=== PATIENT | male | born 1930 | race Caucasian/White ===

== ENCOUNTER 2019-01-22 14:47 | Inpatient (IN) | payer MEDICARE, OTHER ==
--- NOTE | 2019-01-22 14:57 | EDM.PDOC ---
ED HPI GENERAL MEDICAL PROBLEM - General Chief Complaint: General Stated Complaint: FALL Time Seen by Provider: 01/22/19 14:52 Source of Information: Reports: Patient, EMS, Family (son) History Limitations: Reports: Altered Mental Status (history of dementia) - History of Present Illness INITIAL COMMENTS - FREE TEXT/NARRATIVE: Lonnie is an 88 yo male who is brought into the ED via [facility]. His son is present as well and Lonnie states he got up around 1:00 oclock this morning to use the restroom and ended up tripping. He denies any loss of consciousness. States he was unable to get up on his own, so he had crawled from the batho area to his living room. Admits he was able to pull some blankets down and get himself comfortable until his son came over. His son states around 1400 hrs this afternoon he had went to check on him and he was still lying on the ground. He states he was unable to get Lonnie up. He admits he hasn't been very active lately and solely relies on his walker. Hasn't been able to shower so has been giving him sponge baths. Lonnie admits to some neck discomfort but denies hitting his head. States his right ankle is bothering him as well. Denies any other discomfort secondary to fall. Lonnie overall is in good spirits and making normal conversation. Son states his Alzheimer's has been pretty stable, has some difficulty at times with short term memory. Onset: Today Onset Date: 01/22/19 Onset Time: 01:00 Location: Reports: Neck, Lower Extremity, Right Improves with: Reports: Immobilization Worsens with: Reports: Movement Treatments QUALITY CONTROL ASSESSOR: Reports: Spinal Immobilization - Related Data Allergies Allergy/AdvReac Type Severity Reaction Status Date / Time Penicillins Allergy Nausea Verified 01/22/19 14:48 Past Medical History HEENT History: Reports: Cataract Cardiovascular History: Reports: CAD, Hypertension Respiratory History: Reports: Asthma, COPD Neurological History: Reports: Alzheimers Disease Psychiatric History: Reports: Alzheimers Disease, Anxiety, Bipolar, Depression Endocrine/Metabolic History: Reports: Hypothyroidism Oncologic (Cancer) History: Reports: Prostate - Past Surgical History Cardiovascular Surgical History: Reports: Carotid Endarterectomy, Coronary Artery Bypass GI Surgical History: Reports: Hernia, Inguinal Male Surgical History: Reports: Prostatectomy, Vasectomy Neurological Surgical History: Reports: C-Spine, Lumbar Spine Musculoskeletal Surgical History: Reports: Knee Replacement Social & Family History - Family History Cardiac: Reports: Other (See Below) (heart disease) Musculoskeletal: Reports: Arthritis, Osteoporosis - Tobacco Use Smoking Status *Q: Former Smoker - Alcohol Use Alcohol Use History: No - Recreational Drug Use Recreational Drug Use: No - Living Situation & Occupation Living situation: Reports: Alone Occupation: Retired ED ROS GENERAL - Review of Systems Review Of Systems: See Below Constitutional: Reports: Weakness. Denies: Fever, Chills HEENT: Reports: No Symptoms. Denies: Vision Change Respiratory: Denies: Shortness of Breath, Wheezing, Cough Cardiovascular: Reports: Edema. Denies: Chest Pain, Lightheadedness, Palpitations, Syncope GI/Abdominal: Reports: No Symptoms : Reports: No Symptoms Musculoskeletal: Reports: Neck Pain, Leg Pain, Foot Pain (right ankle pain) Skin: Reports: Rash Neurological: Reports: Difficulty Walking, Weakness. Denies: Confusion, Headache, Seizure, Syncope, Trouble Speaking Psychiatric: Reports: No Symptoms ED EXAM, GENERAL - Physical Exam Exam: See Below Exam Limited By: No Limitations General Appearance: Alert, No Apparent Distress, Other (poor grooming) Eye Exam: Right Eye: Conjunctival Injection, Bilateral Eye: EOMI, PERRL Ears: Normal External Exam, Normal Canal, Hearing Grossly Normal, Normal TMs Nose: Normal Inspection, No Blood Throat/Mouth: Normal Inspection, Normal Lips, Normal Oropharynx, Normal Voice, No Airway Compromise, Other (dry mucous membranes) Head: Atraumatic, Normocephalic Neck: Full Range of Motion, Tender Lateral. No: Tender Midline Respiratory/Chest: No Respiratory Distress, Lungs Clear, Normal Breath Sounds, No Accessory Muscle Use Cardiovascular: Regular Rate, Rhythm, No Murmur GI/Abdominal: Normal Bowel Sounds, Soft, Other (obese). No: Distended, Rigid, Rebound, Mass Back Exam: No: Vertebral Tenderness Extremities: Pedal Edema (2 + bilateral pretibial edema) Neurological: Alert, Oriented, Normal Cognition, No Motor/Sensory Deficits, Memory Loss Recent Events. No: Confused, Disoriented, Slow to Respond, Memory Loss Remote Events Psychiatric: Normal Affect, Normal Mood Skin Exam: Warm, Rash (erythematous rash to under bilateral breast, axilla and groin) Course - Vital Signs Last Recorded V/S: Last Vital Signs Temp 97.2 F 01/22/19 15:19 Pulse 104 H 01/22/19 15:19 Resp 18 01/22/19 15:19 BP 175/84 H 01/22/19 15:19 Pulse Ox 96 01/22/19 15:19 - Orders/Labs/Meds Orders: Active Orders 24 hr Category Date Time Status Ankle Min 3V Rt [CR] Stat Exams 01/22/19 14:50 Taken Cervical Spine wo Cont [CT] Stat Exams 01/22/19 14:50 Taken Tibia Fibula Rt [CR] Stat Exams 01/22/19 14:50 Taken UA RFX RADHA AND CULT IF INDIC [URIN] Routine Lab 01/22/19 15:21 Ordered Labs: Laboratory Tests 01/22/19 01/22/19 Range/Units 15:45 15:45 WBC 18.5 H (5.0-10.0) 10^3/uL RBC 4.98 (4.50-6.00) 10^6/uL Hgb 15.6 (14.0-18.0) g/dL Hct 45.7 (40.0-54.0) % MCV 91.8 (82.0-94.0) fL MCH 31.3 (27.0-32.0) pg MCHC 34.1 (33.0-38.0) g/dL RDW Coeff of Mina 13.5 (11.0-15.0) % Plt Count 241 (150-400) 10^3/uL Neut % (Auto) 77.6 (35-85) % Lymph % (Auto) 11.0 (10-55) % [place] % (Auto) 11.0 (0-16) % Eos % (Auto) 0.2 (0-5) % Baso % (Auto) 0.2 (0-3) % Neut # (Auto) 14.37 H (1.80-7.00) 10^3/uL Lymph # (Auto) 2.03 (1.00-4.80) 10^3/uL [place] # (Auto) 2.04 H (0.00-0.80) 10^3/uL Eos # (Auto) 0.04 (0.00-0.45) 10^3/uL Baso # (Auto) 0.03 10^3/uL ESR 3 (0-15) mm/hr Sodium 144 (136-145) mEq/L Potassium 4.0 (3.5-5.0) mEq/L Chloride 108 H (98-106) mEq/L Carbon Dioxide 28 (21-32) mmol/L BUN 30 H (7-18) mg/dL Creatinine 1.2 (0.7-1.3) mg/dL Est Cr Clr Drug Dosing TNP Estimated GFR (MDRD) 57 L (>=60) mL/min Glucose 122 H (75-99) mg/dL Calcium 10.8 H (8.4-10.1) mg/dL Total Bilirubin 0.5 (0.0-1.0) mg/dL AST 21 (15-37) U/L ALT 21 (12-78) U/L Alkaline Phosphatase 112 (46-116) U/L Creatine Kinase 360 H (35-232) U/L Total Protein 6.7 (6.4-8.2) g/dL Albumin 3.5 (3.4-5.0) g/dL Departure - Departure Time of Disposition: 16:00 Disposition: Admitted As Inpatient 68 Clinical Impression: History of falling, presenting hazards to health, Activities of daily living deficit involving grooming and hygiene - Discharge Information Forms: ED Department Discharge - Problem List & Annotations (1) History of falling, presenting hazards to health SNOMED Code(s): 640648622, 306519937, 453838441 Code(s): Z91.81 - HISTORY OF FALLING Status: Acute (2) Activities of daily living deficit involving grooming and hygiene SNOMED Code(s): 691719505 Code(s): UTF3809 - Status: Acute - My Orders Last 24 Hours: My Active Orders 01/22/19 14:50 Ankle Min 3V Rt [CR] Stat Cervical Spine wo Cont [CT] Stat Tibia Fibula Rt [CR] Stat 01/22/19 15:21 UA RFX RADHA AND CULT IF INDIC [URIN] Routine - Assessment/Plan Admission H&P: Please use this note as an admission H&P Last 24 Hours: My Active Orders 01/22/19 14:50 Ankle Min 3V Rt [CR] Stat Cervical Spine wo Cont [CT] Stat Tibia Fibula Rt [CR] Stat 01/22/19 15:21 UA RFX RADHA AND CULT IF INDIC [URIN] Routine Plan: Discussed findings with Lonnie and his son. I am concerned of him being a vulnerable adult. Will admit to Dr. Earl's services under acute care. Will have social services counselor consult. Dr. earl alerted on Lonnie's condition and was in agreement. X-rays of the right tib/fib and ankle were negative for any acute fractures, pending final radiology report. CT of cervical spine did not show any acute fractures, again pending final report. C-collar was removed after clearance to include long board.
[2019-01-22 16:03] LABS: CHLORIDE,CL 108 mEq/L (98-106); SODIUM,NA 144 mEq/L (136-145)
[2019-01-22] MEDS: Enoxaparin 40 MG/0.4 ML Syringe SUBCUT SCH (22:29)
[2019-01-22] MEDS: Formoterol/Mometasone 200-5 MCG 8.8 GM Inhaler IH SCH (22:29)
[2019-01-22] MEDS: Nystatin Topical Powder 15 GM Bottle TOP SCH (22:30)
[2019-01-23] MEDS: Levothyroxine 50 MCG Tab PO SCH (06:06)
[2019-01-23 07:57] LABS: CHLORIDE,CL 111 mEq/L (98-106); SODIUM,NA 146 mEq/L (136-145)
[2019-01-23] MEDS ORDERED: BRIMONIDINE EYEBOTH SCH (08:00)
[2019-01-23] MEDS: Venlafaxine 75 MG Cap.ER PO SCH (08:30)
[2019-01-23] MEDS: Verapamil 240 MG Tab.ER PO SCH (08:30)
[2019-01-23] MEDS: Donepezil 5 MG Tab PO SCH (08:31)
[2019-01-23] MEDS: Furosemide 40 MG Tab PO SCH (08:31)
[2019-01-23] MEDS: Formoterol/Mometasone 200-5 MCG 8.8 GM Inhaler IH SCH ×2 (08:32→20:34)
[2019-01-23] MEDS: Nystatin Topical Powder 15 GM Bottle TOP SCH ×4 (08:33→20:34)
[2019-01-23] MEDS: Aspirin 325 MG Tab.EC PO SCH (08:38)
[2019-01-23] MEDS: Brimonidine 0.2% Ophth Soln 5 ML Bottle EYEBOTH SCH (08:45)
[2019-01-23] MEDS: Sodium Chloride 0.9% 1,000 ML IV SCH ×2 (08:55→22:39)
--- NOTE | 2019-01-23 12:43 | PN ---
DATE: 01/23/2019 S: Lonnie is an 88-year-old male who was admitted to the hospital yesterday after coming in by EMS with concerns of a recent fall with unable to ambulate. It appears that he had been lying by his couch for about 12 hours before his son did find him. He did not lose any consciousness, did come in with complaints of some right lower extremity pain and some neck pain. He states today that the pain in the neck has subsided. He states he does not have any discomfort in his right lower extremity unless he does move it. After admission, we did get a radiology report back that did show a proximal fibular fracture that was nondisplaced. Staff stated he had an excellent night, did not have any complaints throughout the night. O: VITAL SIGNS: Blood pressure is 151/86 with a heart rate of 104, temperature 99.1, oxygen sat 96% with respiratory rate of 20. GENERAL: Cooperative male. He does not really appear to be in any acute distress. He was sitting up in the hospital bed having breakfast this morning. Answering all questions appropriately. HEENT: Grossly unremarkable. LUNGS: Clear to auscultation. I do not hear any adventitious sounds. Respirations are equal and nonlabored. No wheezes, rhonchi, or rales. CARDIAC: Regular rate and rhythm. No murmurs are noted. ABDOMEN: Morbidly obese. Soft, nontender, nondistended. Bowel sounds are present. Normoactive. No organomegaly. No guarding or rigidity. EXTREMITIES: Continued to have 2+ pedal edema in bilateral lower extremities. Tenderness with palpation over the distal knee. LABORATORY DATA: White blood count did improve from 18,500 down to 13,300 today. Otherwise, labs have been stable. CRP was 9. BNP this morning was 435. Urinalysis was negative for any infection. ASSESSMENT: 1. HISTORY OF FALLING WITH PRESENTING HAZARDS TO HEALTH. 2. CLOSED RIGHT FIBULA FRACTURE. 3. VULNERABLE ADULT. P: We will keep Lonnie in acute care at this point in time. I did discuss with physical therapy to get him in a knee immobilizer, however, we do not have a knee immobilizer that will fit him. We will look into ordering from [facility]. We will keep him nonweightbearing at this point in time. Social service has been consulted for possible halfway placement. Dr. Earl reviewed the patient's chart who was in agreement. ADAN/JI /[id number]
[2019-01-23] MEDS: Enoxaparin 40 MG/0.4 ML Syringe SUBCUT SCH (20:34)
[2019-01-24] MEDS: Levothyroxine 50 MCG Tab PO SCH (06:26)
[2019-01-24] MEDS: Verapamil 240 MG Tab.ER PO SCH (07:53)
[2019-01-24] MEDS: Aspirin 325 MG Tab.EC PO SCH (07:53)
[2019-01-24] MEDS: Venlafaxine 75 MG Cap.ER PO SCH (07:53)
[2019-01-24] MEDS: Furosemide 40 MG Tab PO SCH (07:54)
[2019-01-24] MEDS: Donepezil 5 MG Tab PO SCH (07:54)
[2019-01-24] MEDS: Brimonidine 0.2% Ophth Soln 5 ML Bottle EYEBOTH SCH (07:57)
[2019-01-24] MEDS: Nystatin Topical Powder 15 GM Bottle TOP SCH ×2 (07:59→12:10)
[2019-01-24] MEDS: Formoterol/Mometasone 200-5 MCG 8.8 GM Inhaler IH SCH ×2 (07:59→20:14)
--- NOTE | 2019-01-24 11:53 | PCM.PN ---
- General Info Date of Service: 01/24/19 Admission Dx/Problem (Free Text): History of falls Right proximal fibular fracture Weakness Vulnerable adult Functional Status: Reports: Pain Controlled, Tolerating Diet. Denies: Ambulating - Review of Systems General: Reports: Weakness HEENT: Reports: No Symptoms Pulmonary: Denies: Shortness of Breath, Cough Cardiovascular: Denies: Chest Pain Gastrointestinal: Denies: Abdominal Pain, Nausea, Vomiting Musculoskeletal: Reports: Leg Pain Skin: Reports: Rash Neurological: Reports: Confusion - Patient Data Vitals - Most Recent: Last Vital Signs Temp 97.8 F 01/24/19 08:00 Pulse 94 01/24/19 08:00 Resp 20 01/24/19 08:00 BP 158/84 H 01/24/19 08:00 Pulse Ox 96 01/24/19 08:00 Weight - Most Recent: 260 lb I&O - Last 24 Hours: Intake & Output 01/23/19 01/24/19 01/24/19 22:59 06:59 14:59 Intake Total 961 Balance 961 Med Orders - Current: Current Medications Acetaminophen (Tylenol) 650 mg PO Q4H PRN PRN Reason: Pain (Mild 1-3)/fever Aspirin (Ecotrin) 325 mg PO DAILY [facility] Last Admin: 01/24/19 07:53 Dose: 325 mg Brimonidine Tartrate (Alphagan 0.2% Ophth Soln) 1 ml EYEBOTH DAILY [facility] Last Admin: 01/24/19 07:57 Dose: 1 drop Docusate Sodium (Colace) 100 mg PO BID PRN PRN Reason: Constipation Donepezil HCl (Aricept) 10 mg PO DAILY [facility] Last Admin: 01/24/19 07:54 Dose: 10 mg Enoxaparin Sodium (Lovenox) 40 mg SUBCUT BEDTIME [facility] Last Admin: 01/23/19 20:34 Dose: 40 mg Furosemide (Lasix) 40 mg PO DAILY [facility] Last Admin: 01/24/19 07:54 Dose: 40 mg Sodium Chloride (Normal Saline) 1,000 mls @ 70 mls/hr IV ASDIRECTED [facility] Last Admin: 01/23/19 22:39 Dose: 70 mls/hr Levothyroxine Sodium (Synthroid) 75 mcg PO ACBRK [facility] Last Admin: 01/24/19 06:26 Dose: 75 mcg Mometasone Furoate/Formoterol Fumar (Dulera 200-5 Mcg) 1 puff IH BIDRT [facility] Last Admin: 01/24/19 07:59 Dose: 1 inhalation Nystatin (Nystop) 0 gm TOP QID [facility] Last Admin: 01/24/19 07:59 Dose: 1 applic Venlafaxine HCl (Effexor Xr) 150 mg PO DAILY [facility] Last Admin: 01/24/19 07:53 Dose: 150 mg Verapamil HCl (Calan Sr) 120 mg PO DAILY [facility] Last Admin: 01/24/19 07:53 Dose: 120 mg Discontinued Medications Non-Formulary Medication (Brimonidine [Alphagan P 0.15% Ophth Soln]) 1 drop EYEBOTH DAILY [facility] Last Admin: 01/23/19 08:55 Dose: Not Given - Exam General: Alert, Oriented (oriented to person and place) HEENT: Mucous Membr. Moist/[place] Neck: Supple Lungs: Clear to Auscultation, Normal Respiratory Effort Cardiovascular: Regular Rate, Regular Rhythm GI/Abdominal Exam: Normal Bowel Sounds, Soft, Non-Tender Extremities: Pedal Edema, Limited Range of Motion, Other (immobilizer on right leg) Skin: Warm, Other (dry erythematous patches to under both breasts and in axilla , consistent with yeast infection) Neurological: No New Focal Deficit - Problem List & Annotations (1) Weakness SNOMED Code(s): 35410498 Code(s): R53.1 - WEAKNESS Status: Acute Priority: High Current Visit: Yes (2) Closed fibular fracture SNOMED Code(s): 713853751 Code(s): S82.409A - UNSP FRACTURE OF SHAFT OF UNSP FIBULA, INIT FOR CLOS FX Status: Acute Priority: High Current Visit: Yes Qualifiers: Encounter type: initial encounter Fracture alignment: nondisplaced Laterality: right (3) History of falling, presenting hazards to health SNOMED Code(s): 299026248, 644710512, 615562224 Code(s): Z91.81 - HISTORY OF FALLING Status: Acute Priority: High Current Visit: Yes - Problem List Review Problem List Initiated/Reviewed/Updated: Yes - Assessment Assessment:: Weakness History of falling Nondisplaced proximal fibular fracture Vulnerable adult - Plan Plan:: Patient remains weak, immobilizer on right leg. Has difficulty with range of motion and transfer due to weakness. History of dementia, responding appropriately today. Mild pain in leg at times. Physical therapy working with patient, concerns with ability to transfer with no weight bearing. May need to use james lift. Continues to have edema in lower extremities. Much discussion held with son and daughter, Dr. zeng and myself about rehab/ likelihood of this requiring some time due to patient's age, size and medical history. Family is agreeable to retirement for this. Will have case management social worker arrange placement with [place] for this. IV fluids stopped. Will add Diflucan for yeast infection, switch to nystatin cream. Possible discharge to [facility] in next 24-48 hours.
[2019-01-24] MEDS: Fluconazole 100 MG Tab PO SCH (12:10)
[2019-01-24] MEDS: Sodium Chloride 0.9% 1,000 ML IV SCH (12:40)
[2019-01-24] MEDS: Docusate Sodium 100 MG Cap PO PRN (20:14)
[2019-01-24] MEDS: Enoxaparin 40 MG/0.4 ML Syringe SUBCUT SCH (20:14)
[2019-01-24] MEDS: Nystatin Crm 30 GM Tube TOP SCH (20:16)
[2019-01-25] MEDS: Acetaminophen 325 MG Tab PO PRN ×2 (00:29→08:29)
[2019-01-25] MEDS: Levothyroxine 50 MCG Tab PO SCH (06:18)
[2019-01-25] MEDS: Verapamil 240 MG Tab.ER PO SCH (07:42)
[2019-01-25] MEDS: Donepezil 5 MG Tab PO SCH (07:43)
[2019-01-25] MEDS: Venlafaxine 75 MG Cap.ER PO SCH (07:43)
[2019-01-25] MEDS: Fluconazole 100 MG Tab PO SCH (07:44)
[2019-01-25] MEDS: Aspirin 325 MG Tab.EC PO SCH (07:44)
[2019-01-25] MEDS: Furosemide 40 MG Tab PO SCH (07:44)
[2019-01-25] MEDS: Formoterol/Mometasone 200-5 MCG 8.8 GM Inhaler IH SCH ×2 (07:46→20:40)
[2019-01-25] MEDS: Brimonidine 0.2% Ophth Soln 5 ML Bottle EYEBOTH SCH (07:46)
[2019-01-25] MEDS: Nystatin Crm 30 GM Tube TOP SCH ×2 (07:50→20:39)
[2019-01-25] MEDS: Docusate Sodium 100 MG Cap PO PRN (08:29)
--- NOTE | 2019-01-25 09:15 | PCM.PN ---
- General Info Date of Service: 01/25/19 Admission Dx/Problem (Free Text): History of falls Right proximal fibular fracture Weakness Vulnerable adult Functional Status: Reports: Pain Controlled, Tolerating Diet. Denies: Ambulating - Review of Systems General: Reports: Weakness. Denies: Fever HEENT: Reports: No Symptoms Pulmonary: Denies: Shortness of Breath, Cough Cardiovascular: Reports: Edema. Denies: Chest Pain, Lightheadedness Gastrointestinal: Denies: Abdominal Pain, Nausea, Vomiting Genitourinary: Reports: No Symptoms Musculoskeletal: Reports: Leg Pain Skin: Reports: Rash Neurological: Reports: Weakness - Patient Data Vitals - Most Recent: Last Vital Signs Temp 99.1 F 01/25/19 07:48 Pulse 85 01/25/19 07:48 Resp 20 01/25/19 07:48 BP 150/72 H 01/25/19 07:48 Pulse Ox 95 01/25/19 07:48 Weight - Most Recent: 260 lb Med Orders - Current: Current Medications Acetaminophen (Tylenol) 650 mg PO Q4H PRN PRN Reason: Pain (Mild 1-3)/fever Last Admin: 01/25/19 08:29 Dose: 650 mg Aspirin (Ecotrin) 325 mg PO DAILY [facility] Last Admin: 01/25/19 07:44 Dose: 325 mg Brimonidine Tartrate (Alphagan 0.2% Ophth Soln) 1 ml EYEBOTH DAILY [facility] Last Admin: 01/25/19 07:46 Dose: 1 drop Docusate Sodium (Colace) 100 mg PO BID PRN PRN Reason: Constipation Last Admin: 01/25/19 08:29 Dose: 100 mg Donepezil HCl (Aricept) 10 mg PO DAILY [facility] Last Admin: 01/25/19 07:43 Dose: 10 mg Enoxaparin Sodium (Lovenox) 40 mg SUBCUT BEDTIME [facility] Last Admin: 01/24/19 20:14 Dose: 40 mg Fluconazole (Diflucan) 100 mg PO DAILY [facility] Last Admin: 01/25/19 07:44 Dose: 100 mg Furosemide (Lasix) 40 mg PO DAILY [facility] Last Admin: 01/25/19 07:44 Dose: 40 mg Levothyroxine Sodium (Synthroid) 75 mcg PO ACBRK [facility] Last Admin: 01/25/19 06:18 Dose: 75 mcg Mometasone Furoate/Formoterol Fumar (Dulera 200-5 Mcg) 1 puff IH BIDRT [facility] Last Admin: 01/25/19 07:46 Dose: 1 inhalation Nystatin (Nystatin Crm) 0 gm TOP BID [facility] Last Admin: 01/25/19 07:50 Dose: 1 applic Venlafaxine HCl (Effexor Xr) 150 mg PO DAILY [facility] Last Admin: 01/25/19 07:43 Dose: 150 mg Verapamil HCl (Calan Sr) 120 mg PO DAILY [facility] Last Admin: 01/25/19 07:42 Dose: 120 mg Discontinued Medications Sodium Chloride (Normal Saline) 1,000 mls @ 70 mls/hr IV ASDIRECTED [facility] Last Admin: 01/24/19 12:40 Dose: 70 mls/hr Non-Formulary Medication (Brimonidine [Alphagan P 0.15% Ophth Soln]) 1 drop EYEBOTH DAILY [facility] Last Admin: 01/23/19 08:55 Dose: Not Given Nystatin (Nystop) 0 gm TOP QID [facility] Last Admin: 01/24/19 12:10 Dose: Not Given - Exam General: Alert, Oriented (oriented to person and place), Cooperative HEENT: Mucous Membr. Moist/[place] Neck: Supple Lungs: Clear to Auscultation, Normal Respiratory Effort Cardiovascular: Regular Rate, Regular Rhythm GI/Abdominal Exam: Normal Bowel Sounds, Soft, Non-Tender Extremities: Pedal Edema, Limited Range of Motion, Other (immobilizer intact to right leg) Skin: Warm, Dry Wound/Incisions: Other (erythematous plaques in axilla and under breasts.) Neurological: No New Focal Deficit - Problem List & Annotations (1) Weakness SNOMED Code(s): 88569781 Code(s): R53.1 - WEAKNESS Status: Acute Priority: High Current Visit: Yes (2) Closed fibular fracture SNOMED Code(s): 546113958 Code(s): S82.409A - UNSP FRACTURE OF SHAFT OF UNSP FIBULA, INIT FOR CLOS FX Status: Acute Priority: High Current Visit: Yes Qualifiers: Encounter type: initial encounter Fracture alignment: nondisplaced Laterality: right (3) History of falling, presenting hazards to health SNOMED Code(s): 598169965, 663955415, 124153046 Code(s): Z91.81 - HISTORY OF FALLING Status: Acute Priority: High Current Visit: Yes - Problem List Review Problem List Initiated/Reviewed/Updated: Yes - My Orders Last 24 Hours: My Active Orders 01/24/19 12:15 Fluconazole [Diflucan] 100 mg PO DAILY 01/24/19 20:00 Nystatin [Nystatin Crm] See Dose Instructions TOP BID - Assessment Assessment:: Weakness History of falling Nondisplaced proximal fibular fracture Vulnerable adult - Plan Plan:: Patient remains weak, immobilizer on right leg. Has difficulty with range of motion and transfer due to weakness. History of dementia, responding appropriately today. Mild pain in leg at times. Physical therapy working with patient, concerns with ability to transfer with no weight bearing. May need to use james lift. Continues to have edema in lower extremities. Much discussion held with son and daughter, Dr. zeng and myself about rehab/ likelihood of this requiring some time due to patient's age, size and medical history. Family is agreeable to shelter for this. Will have social media manager arrange placement with [place] for this. IV fluids stopped. Will add Diflucan for yeast infection, switch to nystatin cream. Possible discharge to [facility] in next 24-48 hours. 01-25-2019 Patient resting quietly in bed. More alert and conversive this am. Oriented to person and place. Immobilizer intact to right leg. Requires james at this point yet for transfers. Denies pain at present in leg. Edema noted bilaterally, 1-2+. Discussed transfer to [facility] tomorrow with son. Agreeable for this. Will continue with current medication regimen, PT.
[2019-01-25] MEDS ORDERED: Tuberculin, PPD 5 Units/0.1 ML 1 ML MDV IDERM ONE (14:32)
[2019-01-25] MEDS: Enoxaparin 40 MG/0.4 ML Syringe SUBCUT SCH (20:38)
[2019-01-26] MEDS: Levothyroxine 50 MCG Tab PO SCH (06:16)
[2019-01-26] MEDS: Aspirin 325 MG Tab.EC PO SCH (08:32)
[2019-01-26] MEDS: Donepezil 5 MG Tab PO SCH (08:32)
[2019-01-26] MEDS: Furosemide 40 MG Tab PO SCH (08:32)
[2019-01-26] MEDS: Verapamil 240 MG Tab.ER PO SCH (08:33)
[2019-01-26] MEDS: Fluconazole 100 MG Tab PO SCH (08:33)
[2019-01-26] MEDS: Formoterol/Mometasone 200-5 MCG 8.8 GM Inhaler IH SCH (08:33)
[2019-01-26] MEDS: Brimonidine 0.2% Ophth Soln 5 ML Bottle EYEBOTH SCH (08:33)
[2019-01-26] MEDS: Nystatin Crm 30 GM Tube TOP SCH (08:36)
[2019-01-26] MEDS: Venlafaxine 75 MG Cap.ER PO SCH (08:36)
[2019-01-26 09:17] VITALS: BP 178/87
--- NOTE | 2019-01-26 20:40 | PCM.DCSUM1 ---
Discharge Summary - Hospital Course Free Text/Narrative:: Patient presented to ER per EMS after a fall. Patient tripped enroute while using the bathroom, was unable to get up on his own so he crawled from the bathroom to the living room. Pulled blankets to keep comfortable and waited for his sone. Had laid on the floor for several hours. Son related he has not been as actively lately and has been relying on his walker more. Complaining of right ankle pain and when EMS arrived, also complained of neck pain. Son reports he patient has alzheimer's dementia, feels it has been stable. Has good days and bad. Patient unkempt on arrival. Noted to have yeast infection in axilla and under breast tissue. Xrays done on leg and cervical spine. Found to have tibia fracture. Admitted due to vulnerable adult. Diagnosis: Stroke: No Modified Goodland Scale: No Symptoms at All Modified Goodland Scale Score: 0 - Discharge Data Discharge Date: 01/26/19 Discharge Disposition: DC/Tfer W/I Hosp To Swing 61 Condition: Fair - Discharge Diagnosis/Problem(s) (1) Weakness SNOMED Code(s): 98509683 ICD Code: R53.1 - WEAKNESS Status: Acute Priority: High (2) Closed fibular fracture SNOMED Code(s): 706574023 ICD Code: S82.409A - UNSP FRACTURE OF SHAFT OF UNSP FIBULA, INIT FOR CLOS FX Status: Acute Priority: High Qualifiers: Encounter type: initial encounter Fracture alignment: nondisplaced Laterality: right (3) History of falling, presenting hazards to health SNOMED Code(s): 835053861, 566587751, 076949001 ICD Code: Z91.81 - HISTORY OF FALLING Status: Acute Priority: High - Patient Summary/Data Consults: Consultations 01/22/19 17:41 Consult to Case Management/Supervisor Boarding [CONS] Routine PT Evaluation and Treatment [CONS] Routine Hospital Course: Patient stable. Oriented to person and place. Cooperative. He currently has an immobilizer on due to tibia fracture. Denies much for pain. Transferring with ez stand and staff assist. Eating well. Currently on Diflucan and Nystatin cream for yeast infection in axilla and under breast tissue. Continues to have 1+ edema. Discussion has been held with family in regards to inability to care for self at home. Will transfer to [facility] for rehab. Transferred to swing bed for PT while awaiting level 2 screening due to history of Major Depressive Disorder. - Discharge Plan Home Medications: Home Meds Aspirin [Aspirin EC] 325 mg PO DAILY 01/22/19 [History] Brimonidine [Alphagan P 0.15% Ophth Soln] 1 drop EYEBOTH DAILY 01/22/19 [History ] Budesonide/Formoterol [Symbicort 160-4.5 MCG] 1 puff INH BID 01/22/19 [History] Donepezil HCl [Aricept] 10 mg PO DAILY 01/22/19 [History] Furosemide 40 mg PO DAILY 01/22/19 [History] Levothyroxine Sodium [Synthroid] 75 mcg PO DAILY 01/22/19 [History] Venlafaxine HCl [Venlafaxine HCl ER] 150 mg PO DAILY 01/22/19 [History] Verapamil HCl [Verapamil ER] 120 mg PO DAILY 01/22/19 [History] Forms: ED Department Discharge Referrals: PCP,None [Ordering Only Provider] - - Discharge Summary/Plan Comment DC Time >30 min.: No - General Info Date of Service: 01/26/19 Admission Dx/Problem (Free Text: History of falls Right proximal fibular fracture Weakness Vulnerable adult Functional Status: Reports: Pain Controlled, Tolerating Diet. Denies: Ambulating - Review of Systems General: Reports: Weakness HEENT: Reports: No Symptoms Pulmonary: Denies: Shortness of Breath, Cough Cardiovascular: Reports: Edema. Denies: Chest Pain, Lightheadedness Gastrointestinal: Denies: Abdominal Pain, Nausea, Vomiting Genitourinary: Reports: No Symptoms Musculoskeletal: Reports: Leg Pain Skin: Reports: Rash Neurological: Reports: Confusion, Weakness - Patient Data Vitals - Most Recent: Last Vital Signs Temp 98.3 F 01/26/19 08:00 Pulse 91 01/26/19 08:00 Resp 20 01/26/19 08:00 BP 178/87 H 01/26/19 08:00 Pulse Ox 98 01/26/19 08:00 Weight - Most Recent: 260 lb Med Orders - Current: Current Medications Discontinued Medications Acetaminophen (Tylenol) 650 mg PO Q4H PRN PRN Reason: Pain (Mild 1-3)/fever Last Admin: 01/25/19 08:29 Dose: 650 mg Aspirin (Ecotrin) 325 mg PO DAILY [facility] Last Admin: 01/26/19 08:32 Dose: 325 mg Brimonidine Tartrate (Alphagan 0.2% Ophth Soln) 1 ml EYEBOTH DAILY [facility] Last Admin: 01/26/19 08:33 Dose: 1 drop Docusate Sodium (Colace) 100 mg PO BID PRN PRN Reason: Constipation Last Admin: 01/25/19 08:29 Dose: 100 mg Donepezil HCl (Aricept) 10 mg PO DAILY [facility] Last Admin: 01/26/19 08:32 Dose: 10 mg Enoxaparin Sodium (Lovenox) 40 mg SUBCUT BEDTIME [facility] Last Admin: 01/25/19 20:38 Dose: 40 mg Fluconazole (Diflucan) 100 mg PO DAILY [facility] Last Admin: 01/26/19 08:33 Dose: 100 mg Furosemide (Lasix) 40 mg PO DAILY [facility] Last Admin: 01/26/19 08:32 Dose: 40 mg Sodium Chloride (Normal Saline) 1,000 mls @ 70 mls/hr IV ASDIRECTED [facility] Last Admin: 01/24/19 12:40 Dose: 70 mls/hr Levothyroxine Sodium (Synthroid) 75 mcg PO ACBRK [facility] Last Admin: 01/26/19 06:16 Dose: 75 mcg Mometasone Furoate/Formoterol Fumar (Dulera 200-5 Mcg) 1 puff IH BIDRT [facility] Last Admin: 01/26/19 08:33 Dose: 1 inhalation Non-Formulary Medication (Brimonidine [Alphagan P 0.15% Ophth Soln]) 1 drop EYEBOTH DAILY [facility] Last Admin: 01/23/19 08:55 Dose: Not Given Nystatin (Nystop) 0 gm TOP QID [facility] Last Admin: 01/24/19 12:10 Dose: Not Given Nystatin (Nystatin Crm) 0 gm TOP BID [facility] Last Admin: 01/26/19 08:36 Dose: 1 applic Tuberculin PPD (Aplisol) 5 unit IDERM ONETIME ONE Stop: 01/25/19 14:33 Last Admin: 01/25/19 15:09 Dose: 5 unit Venlafaxine HCl (Effexor Xr) 150 mg PO DAILY [facility] Last Admin: 01/26/19 08:36 Dose: 150 mg Verapamil HCl (Calan Sr) 120 mg PO DAILY [facility] Last Admin: 01/26/19 08:33 Dose: 120 mg - Exam General: Reports: Alert, Oriented (person and place), Cooperative HEENT: Reports: Mucous Membr. Moist/[place] Neck: Reports: Supple Lungs: Reports: Clear to Auscultation, Normal Respiratory Effort Cardiovascular: Reports: Regular Rate, Regular Rhythm GI/Abdominal Exam: Normal Bowel Sounds, Soft, Non-Tender Extremities: Other (immobilizer intact to right leg) Skin: Reports: Rash (erythematous plaque to under axilla and breast tissue. ) Neurological: Reports: No New Focal Deficit
== END 2019-01-26 09:37 | disposition swing bed (61) | DRG 563 ==
LOC: CC.ED 14:47 → CC.MS 16:00
PROVIDERS: ADMIT Physician Assistant Medical; ATTEND Family Medicine
DX: S82.401A Unspecified fracture of shaft of right fibula, initial encounter for closed fracture (principal); B37.89 Other sites of candidiasis; S82.201A Unspecified fracture of shaft of right tibia, initial encounter for closed fracture; Z66 Do not resuscitate; I25.10 Atherosclerotic heart disease of native coronary artery without angina pectoris; H26.9 Unspecified cataract; I10 Essential (primary) hypertension; W01.0XXA Fall on same level from slipping, tripping and stumbling without subsequent striking against object, initial encounter; J44.9 Chronic obstructive pulmonary disease, unspecified; F41.9 Anxiety disorder, unspecified; F32.9 Major depressive disorder, single episode, unspecified; E03.9 Hypothyroidism, unspecified; G30.9 Alzheimer's disease, unspecified; F02.80 Dementia in other diseases classified elsewhere, unspecified severity, without behavioral disturbance, psychotic disturbance, mood disturbance, and anxiety; Z96.659 Presence of unspecified artificial knee joint; Z87.891 Personal history of nicotine dependence; Z79.82 Long term (current) use of aspirin; Z79.899 Other long term (current) drug therapy; Z95.1 Presence of aortocoronary bypass graft; Y92.002 Bathroom of unspecified non-institutional (private) residence as the place of occurrence of the external cause; Z88.0 Allergy status to penicillin; Z85.46 Personal history of malignant neoplasm of prostate
CPT/HCPCS: 36415; 72125; 73590-RT; 73610-RT; 80048; 80053; 81003; 82550; 83880; 85025; 85651; 86140; 86580; 94640; 97110-GP; 97161-GP; 97530-GP; 97760-GP; 99285-25; A9270-GY; J1650; J7030

== ENCOUNTER 2019-01-26 09:20 | Inpatient (IN) | payer MEDICARE, OTHER ==
[2019-01-26] MEDS: Nystatin Crm 30 GM Tube TOP SCH (20:35)
[2019-01-26] MEDS: Formoterol/Mometasone 200-5 MCG 8.8 GM Inhaler IH SCH (20:36)
[2019-01-26] MEDS: Enoxaparin 40 MG/0.4 ML Syringe SUBCUT SCH (20:39)
[2019-01-27] MEDS: Levothyroxine 50 MCG Tab PO SCH (06:21)
[2019-01-27] MEDS: Furosemide 40 MG Tab PO SCH (08:30)
[2019-01-27] MEDS: Venlafaxine 75 MG Cap.ER PO SCH (08:30)
[2019-01-27] MEDS: Aspirin 325 MG Tab.EC PO SCH (08:30)
[2019-01-27] MEDS: Fluconazole 100 MG Tab PO SCH (08:31)
[2019-01-27] MEDS: Donepezil 5 MG Tab PO SCH (08:31)
[2019-01-27] MEDS: Verapamil 240 MG Tab.ER PO SCH (08:31)
[2019-01-27] MEDS: Nystatin Crm 30 GM Tube TOP SCH ×2 (08:32→19:14)
[2019-01-27] MEDS: Formoterol/Mometasone 200-5 MCG 8.8 GM Inhaler IH SCH ×2 (08:32→19:14)
[2019-01-27] MEDS: Brimonidine 0.2% Ophth Soln 5 ML Bottle EYEBOTH SCH (08:35)
[2019-01-27] MEDS: Enoxaparin 40 MG/0.4 ML Syringe SUBCUT SCH (19:15)
[2019-01-27] MEDS: Acetaminophen 325 MG Tab PO PRN (21:22)
[2019-01-28] MEDS: Levothyroxine 50 MCG Tab PO SCH (06:50)
[2019-01-28] MEDS: Formoterol/Mometasone 200-5 MCG 8.8 GM Inhaler IH SCH ×2 (08:22→20:26)
[2019-01-28] MEDS: Brimonidine 0.2% Ophth Soln 5 ML Bottle EYEBOTH SCH (08:22)
[2019-01-28] MEDS: Verapamil 240 MG Tab.ER PO SCH (08:22)
[2019-01-28] MEDS: Fluconazole 100 MG Tab PO SCH (08:22)
[2019-01-28] MEDS: Furosemide 40 MG Tab PO SCH (08:25)
[2019-01-28] MEDS: Donepezil 5 MG Tab PO SCH (08:25)
[2019-01-28] MEDS: Aspirin 325 MG Tab.EC PO SCH (08:25)
[2019-01-28] MEDS: Venlafaxine 75 MG Cap.ER PO SCH (08:25)
[2019-01-28] MEDS: Nystatin Crm 30 GM Tube TOP SCH ×2 (18:51→20:26)
[2019-01-28] MEDS: Enoxaparin 40 MG/0.4 ML Syringe SUBCUT SCH (20:26)
[2019-01-28] MEDS: Acetaminophen 325 MG Tab PO PRN (20:45)
[2019-01-29] MEDS: Levothyroxine 50 MCG Tab PO SCH (07:00)
[2019-01-29] MEDS: Verapamil 240 MG Tab.ER PO SCH (07:57)
[2019-01-29] MEDS: Aspirin 325 MG Tab.EC PO SCH (07:57)
[2019-01-29] MEDS: Donepezil 5 MG Tab PO SCH (07:57)
[2019-01-29] MEDS: Furosemide 40 MG Tab PO SCH (07:58)
[2019-01-29] MEDS: Formoterol/Mometasone 200-5 MCG 8.8 GM Inhaler IH SCH ×2 (07:58→19:34)
[2019-01-29] MEDS: Brimonidine 0.2% Ophth Soln 5 ML Bottle EYEBOTH SCH (07:58)
[2019-01-29] MEDS: Fluconazole 100 MG Tab PO SCH (07:58)
[2019-01-29] MEDS: Venlafaxine 75 MG Cap.ER PO SCH (07:58)
[2019-01-29] MEDS: Nystatin Crm 30 GM Tube TOP SCH ×2 (07:59→19:35)
[2019-01-29] MEDS: Enoxaparin 40 MG/0.4 ML Syringe SUBCUT SCH (19:35)
[2019-01-30] MEDS: Levothyroxine 50 MCG Tab PO SCH (06:51)
[2019-01-30] MEDS: Donepezil 5 MG Tab PO SCH (07:48)
[2019-01-30] MEDS: Aspirin 325 MG Tab.EC PO SCH (07:48)
[2019-01-30] MEDS: Verapamil 240 MG Tab.ER PO SCH (07:48)
[2019-01-30] MEDS: Furosemide 40 MG Tab PO SCH (07:48)
[2019-01-30] MEDS: Fluconazole 100 MG Tab PO SCH (07:49)
[2019-01-30] MEDS: Venlafaxine 75 MG Cap.ER PO SCH (07:49)
[2019-01-30] MEDS: Formoterol/Mometasone 200-5 MCG 8.8 GM Inhaler IH SCH ×2 (07:50→20:14)
[2019-01-30] MEDS: Brimonidine 0.2% Ophth Soln 5 ML Bottle EYEBOTH SCH (07:51)
[2019-01-30] MEDS: Nystatin Crm 30 GM Tube TOP SCH ×2 (07:52→20:15)
[2019-01-30] MEDS: Enoxaparin 40 MG/0.4 ML Syringe SUBCUT SCH (20:14)
[2019-01-31] MEDS: Levothyroxine 50 MCG Tab PO SCH (06:39)
[2019-01-31] MEDS: Docusate Sodium 100 MG Cap PO PRN ×2 (08:30→22:54)
[2019-01-31] MEDS: Acetaminophen 325 MG Tab PO PRN (08:30)
[2019-01-31] MEDS: Furosemide 40 MG Tab PO SCH (08:31)
[2019-01-31] MEDS: Fluconazole 100 MG Tab PO SCH (08:31)
[2019-01-31] MEDS: Aspirin 325 MG Tab.EC PO SCH (08:31)
[2019-01-31] MEDS: Donepezil 5 MG Tab PO SCH (08:31)
[2019-01-31] MEDS: Venlafaxine 75 MG Cap.ER PO SCH (08:31)
[2019-01-31] MEDS: Verapamil 240 MG Tab.ER PO SCH (08:32)
[2019-01-31] MEDS: Nystatin Crm 30 GM Tube TOP SCH ×2 (08:33→19:59)
[2019-01-31] MEDS: Formoterol/Mometasone 200-5 MCG 8.8 GM Inhaler IH SCH ×2 (08:33→19:59)
[2019-01-31] MEDS: Brimonidine 0.2% Ophth Soln 5 ML Bottle EYEBOTH SCH (08:33)
[2019-01-31] MEDS: Enoxaparin 40 MG/0.4 ML Syringe SUBCUT SCH (20:00)
[2019-02-01] MEDS: Levothyroxine 50 MCG Tab PO SCH (06:40)
[2019-02-01] MEDS: Aspirin 325 MG Tab.EC PO SCH (08:08)
[2019-02-01] MEDS: Donepezil 5 MG Tab PO SCH (08:08)
[2019-02-01] MEDS: Venlafaxine 75 MG Cap.ER PO SCH (08:08)
[2019-02-01] MEDS: Furosemide 40 MG Tab PO SCH (08:09)
[2019-02-01] MEDS: Fluconazole 100 MG Tab PO SCH (08:09)
[2019-02-01] MEDS: Verapamil 240 MG Tab.ER PO SCH (08:09)
[2019-02-01] MEDS: Formoterol/Mometasone 200-5 MCG 8.8 GM Inhaler IH SCH ×2 (08:09→19:54)
[2019-02-01] MEDS: Brimonidine 0.2% Ophth Soln 5 ML Bottle EYEBOTH SCH (08:10)
[2019-02-01] MEDS: Nystatin Crm 30 GM Tube TOP SCH ×2 (08:10→19:56)
[2019-02-01] MEDS: Acetaminophen 325 MG Tab PO PRN (10:51)
[2019-02-01] MEDS: Docusate Sodium 100 MG Cap PO PRN (10:52)
[2019-02-01] MEDS: Enoxaparin 40 MG/0.4 ML Syringe SUBCUT SCH (19:55)
[2019-02-02] MEDS: Levothyroxine 50 MCG Tab PO SCH (06:00)
[2019-02-02] MEDS: Donepezil 5 MG Tab PO SCH (08:05)
[2019-02-02] MEDS: Formoterol/Mometasone 200-5 MCG 8.8 GM Inhaler IH SCH (08:06)
[2019-02-02] MEDS: Aspirin 325 MG Tab.EC PO SCH (08:06)
[2019-02-02] MEDS: Brimonidine 0.2% Ophth Soln 5 ML Bottle EYEBOTH SCH (08:06)
[2019-02-02] MEDS: Nystatin Crm 30 GM Tube TOP SCH (08:06)
[2019-02-02] MEDS: Furosemide 40 MG Tab PO SCH (08:07)
[2019-02-02] MEDS: Verapamil 240 MG Tab.ER PO SCH (08:07)
[2019-02-02] MEDS: Fluconazole 100 MG Tab PO SCH (08:07)
[2019-02-02] MEDS: Venlafaxine 75 MG Cap.ER PO SCH (08:07)
--- NOTE | 2019-02-02 20:47 | PCM.DCSUM1 ---
Discharge Summary - Hospital Course Free Text/Narrative:: Patient presented to ER after a fall. Had tripped at home enroute to the bathroom. Was unable to get up adn spent several hours on the floor. Patient has been inactive or many months. Relies on walker for ambulation. Relies on walker for ambulation. Has history of Alzheimers Dementia. Complained of right ankle pain. Sustained a tibular fracture. Placed in immobilizer and admitted as vulnerable adult. Has yeast infection of skin scattered throughout, most noticeable in axilla and on chest. Transferred to swing bed as vulnerable adult. Unable to bear weight. Continue with PT. Diagnosis: Stroke: No Modified Pratt Scale: No Symptoms at All Modified Pratt Scale Score: 0 - Discharge Data Discharge Date: 02/02/19 Discharge Disposition: DC/Tfer to [facility] Condition: Good - Patient Summary/Data Complications: none Consults: Consultations 01/26/19 10:27 Consult to Case Management/Chief Analytics Officer [CONS] Routine PT Evaluation and Treatment [CONS] Routine Hospital Course: Swing bed stay uneventful. Patient cooperative. Continues no weight bearing, requires james lift. Is confused at times. Patient voids in small amounts frequently. Did test urine, no infection. No urinary retention. Will transfer to [facility] for ongoing therapy, assistance as needed due to fracture, no weight bearing as well as inability at times to understand this due to Alzheimer's Disease. - Patient Instructions Diet: Usual Diet as Tolerated Activity: As Tolerated - Discharge Plan *PRESCRIPTION DRUG MONITORING PROGRAM REVIEWED*: No *COPY OF PRESCRIPTION DRUG MONITORING REPORT IN PATIENT NAZIA: No Prescriptions/Med Rec: Acetaminophen [Tylenol] 650 mg PO Q4H PRN #60 tablet PRN Reason: Pain (Mild 1-3)/fever Docusate Sodium [Colace] 100 mg PO BID PRN #60 cap PRN Reason: Constipation Nystatin [Nystatin Crm] 100,000 units TOP BID PRN #30 tube PRN Reason: Rash Home Medications: Home Meds Aspirin [Aspirin EC] 325 mg PO DAILY 01/22/19 [History] Brimonidine [Alphagan P 0.15% Ophth Soln] 1 drop EYEBOTH DAILY 01/22/19 [History ] Budesonide/Formoterol [Symbicort 160-4.5 MCG] 1 puff INH BID 01/22/19 [History] Donepezil HCl [Aricept] 10 mg PO DAILY 01/22/19 [History] Furosemide 40 mg PO DAILY 01/22/19 [History] Levothyroxine Sodium [Synthroid] 75 mcg PO DAILY 01/22/19 [History] Venlafaxine HCl [Venlafaxine HCl ER] 150 mg PO DAILY 01/22/19 [History] Verapamil HCl [Verapamil ER] 120 mg PO DAILY 01/22/19 [History] Acetaminophen [Tylenol] 650 mg PO Q4H PRN #60 tablet 02/02/19 [Rx] Docusate Sodium [Colace] 100 mg PO BID PRN #60 cap 02/02/19 [Rx] Nystatin [Nystatin Crm] 100,000 units TOP BID PRN #30 tube 02/02/19 [Rx] - Discharge Summary/Plan Comment DC Time >30 min.: No - General Info Date of Service: 02/02/19 Admission Dx/Problem (Free Text: Closed Fibular Fracture HIstory of falls. Functional Status: Reports: Pain Controlled, Tolerating Diet. Denies: Ambulating - Review of Systems General: Reports: Weakness HEENT: Reports: No Symptoms Pulmonary: Denies: Shortness of Breath, Cough Cardiovascular: Reports: Edema. Denies: Chest Pain, Lightheadedness Gastrointestinal: Denies: Abdominal Pain, Nausea, Vomiting Genitourinary: Reports: No Symptoms Musculoskeletal: Reports: Leg Pain Skin: Reports: No Symptoms Neurological: Reports: Pre-Existing Deficit - Patient Data Vitals - Most Recent: Last Vital Signs Temp 97.9 F 02/02/19 08:00 Pulse 69 02/02/19 08:00 Resp 18 02/02/19 08:00 BP 165/68 H 02/02/19 08:00 Pulse Ox 96 02/02/19 08:00 Weight - Most Recent: 269 lb 3.2 oz Med Orders - Current: Current Medications Discontinued Medications Acetaminophen (Tylenol) 650 mg PO Q4H PRN PRN Reason: Pain (Mild 1-3)/fever Last Admin: 02/01/19 10:51 Dose: 650 mg Aspirin (Ecotrin) 325 mg PO DAILY [facility] Last Admin: 02/02/19 08:06 Dose: 325 mg Brimonidine Tartrate (Alphagan 0.2% Ophth Soln) 1 ml EYEBOTH DAILY [facility] Last Admin: 02/02/19 08:06 Dose: 1 drop Docusate Sodium (Colace) 100 mg PO BID PRN PRN Reason: Constipation Last Admin: 02/01/19 10:52 Dose: 100 mg Donepezil HCl (Aricept) 10 mg PO DAILY [facility] Last Admin: 02/02/19 08:05 Dose: 10 mg Enoxaparin Sodium (Lovenox) 40 mg SUBCUT BEDTIME [facility] Last Admin: 02/01/19 19:55 Dose: 40 mg Fluconazole (Diflucan) 100 mg PO DAILY [facility] Last Admin: 02/02/19 08:07 Dose: 100 mg Furosemide (Lasix) 40 mg PO DAILY [facility] Last Admin: 02/02/19 08:07 Dose: 40 mg Levothyroxine Sodium (Synthroid) 75 mcg PO ACBRK [facility] Last Admin: 02/02/19 06:00 Dose: 75 mcg Mometasone Furoate/Formoterol Fumar (Dulera 200-5 Mcg) 1 puff IH BIDRT [facility] Last Admin: 02/02/19 08:06 Dose: 1 puff Nystatin (Nystatin Crm) 0 gm TOP BID [facility] Last Admin: 02/02/19 08:06 Dose: 1 applic Venlafaxine HCl (Effexor Xr) 150 mg PO DAILY [facility] Last Admin: 02/02/19 08:07 Dose: 150 mg Verapamil HCl (Calan Sr) 120 mg PO DAILY [facility] Last Admin: 02/02/19 08:07 Dose: 120 mg - Exam General: Reports: Alert, Oriented (person and place) HEENT: Reports: Mucous Membr. Moist/[place] Neck: Reports: Supple Lungs: Reports: Clear to Auscultation, Normal Respiratory Effort Cardiovascular: Reports: Regular Rate, Regular Rhythm GI/Abdominal Exam: Normal Bowel Sounds, Soft, Non-Tender Extremities: Limited Range of Motion (Immobilizer intact to right lower extremity) Skin: Reports: Warm, Dry Neurological: Reports: No New Focal Deficit
== END 2019-02-02 14:10 | DRG 563 ==
LOC: CC.MS 09:20 → UNDOADMIN 09:45 → CC.MS 01-27 11:30
PROVIDERS: ADMIT Family Medicine; ATTEND Family Medicine
DX: S82.401A Unspecified fracture of shaft of right fibula, initial encounter for closed fracture (principal); F32.9 Major depressive disorder, single episode, unspecified; R53.1 Weakness; W01.0XXA Fall on same level from slipping, tripping and stumbling without subsequent striking against object, initial encounter; G30.9 Alzheimer's disease, unspecified; F02.80 Dementia in other diseases classified elsewhere, unspecified severity, without behavioral disturbance, psychotic disturbance, mood disturbance, and anxiety; S82.201A Unspecified fracture of shaft of right tibia, initial encounter for closed fracture; B37.89 Other sites of candidiasis; Z79.82 Long term (current) use of aspirin; Z79.899 Other long term (current) drug therapy; Y92.002 Bathroom of unspecified non-institutional (private) residence as the place of occurrence of the external cause
CPT/HCPCS: 81001; 94640; 97110-GP; A9270-GY; J1650